=== PATIENT | male | born 1965 | race Two or more races ===

== ENCOUNTER → 2017-06-15 | Outpatient (CLI) | payer OTHER | END | disposition home or self-care (01) | LOC: HKI 09:54 | DX: Z47.1 Aftercare following joint replacement surgery (principal); Z96.651 Presence of right artificial knee joint ==

== ENCOUNTER → 2017-07-14 | Outpatient (CLI) | payer OTHER | END | disposition home or self-care (01) | LOC: HKI 13:52 | DX: Z09 Encounter for follow-up examination after completed treatment for conditions other than malignant neoplasm (principal); Z96.651 Presence of right artificial knee joint; M17.12 Unilateral primary osteoarthritis, left knee | CPT/HCPCS: 73562; 73562-RT ==

== ENCOUNTER → 2017-07-20 | Outpatient (CLI) | payer OTHER | END | disposition home or self-care (01) | LOC: HKI 14:56 | DX: Z47.1 Aftercare following joint replacement surgery (principal); Z96.651 Presence of right artificial knee joint | CPT/HCPCS: 20610 ==

== ENCOUNTER 2018-02-02 12:27 | Emergency (ER) | payer OTHER ==
[2018-02-02] MEDS: SOD CHLORIDE 0.9% 1,000 ML IV (13:53)
[2018-02-02] MEDS: morphine 2 MG INJ IV (13:54)
[2018-02-02] MEDS: ONDANSETRON 4 MG INJ IV (13:54)
[2018-02-02 14:13] LABS: ADD MAN DIFF? NO
[2018-02-02 14:20] LABS: BASOPHILS % 0.4 % (0.0-2.0); EOSINOPHILS # 0.1 10^3/ul (0.0-0.5); EOSINOPHILS % 1.1 % (0.0-7.0); HEMOGLOBIN 16.7 g/dl (14.0-18.0); LYMPHOCYTES % 17.7 % (15.0-51.0); MEAN CORPUSCULAR HEMOGLOBIN 30.3 pg (29.0-33.0); MEAN CORPUSCULAR HGB CONC 33.4 g/dl (32.0-37.0); MEAN CORPUSCULAR VOLUME 90.7 fl (82.0-101.0); MEAN PLATELET VOLUME 9.2 fl (7.4-10.4); MONOCYTES % 8.9 % (0.0-11.0); NEUTROPHIL # 7.9 10^3/ul (1.6-7.5); NEUTROPHILS % 71.7 % (39.0-77.0); PLATELET COUNT 267 10^3/UL (140-415); RED BLOOD COUNT 5.51 10^6/ul (4.70-6.10); RED CELL DISTRIBUTION WIDTH 11.9 % (11.5-14.5)
[2018-02-02 14:20] LABS: WHITE BLOOD COUNT 11.1 10^3/ul (4.8-10.8)
[2018-02-02 14:21] LABS: ADD UMIC NO; UR ASCORBIC ACID NEGATIVE (NEGATIVE); UR BILIRUBIN (Dip) 1+ mg/dL (NEGATIVE); UR BLOOD (Dip) NEGATIVE (NEGATIVE); UR CLARITY CLEAR (CLEAR); UR COLOR AMBER (YELLOW); UR GLUCOSE (Dip) NEGATIVE (NEGATIVE); UR KETONES (Dip) NEGATIVE (NEGATIVE); UR LEUKOCYTE ESTERASE (Dip) NEGATIVE Leu/ul (NEGATIVE); UR NITRITE (Dip) NEGATIVE (NEGATIVE); UR SPECIFIC GRAVITY (Dip) 1.024 (1.003-1.030); UR TOTAL PROTEIN (Dip) NEGATIVE (NEGATIVE); UR UROBILINOGEN (Dip) 2+ mg/dL (NEGATIVE)
[2018-02-02 14:32] LABS: ALANINE AMINOTRANSFERASE 28 IU/L (13-69); ALBUMIN 4.6 g/dl (3.3-4.9); ALBUMIN/GLOBULIN RATIO 1.21; ALKALINE PHOSPHATASE 132 IU/L (42-121); ANION GAP 14 (8-16); ASPARTATE AMINO TRANSFERASE 36 IU/L (15-46); BILIRUBIN,INDIRECT 0.2 mg/dl (0-1.1); BILIRUBIN,TOTAL 0.2 mg/dl (0.2-1.3); BLOOD UREA NITROGEN 16 mg/dl (7-20); CALCIUM 9.5 mg/dl (8.4-10.2); CARBON DIOXIDE 28 mmol/L (21-31); CHLORIDE 105 mmol/L (97-110); CREATININE 1.11 mg/dl (0.61-1.24); GLUCOSE 87 mg/dl (70-220); LIPASE 115 U/L (23-300); POTASSIUM 4.1 mmol/L (3.5-5.1); SODIUM 143 mmol/L (135-144); TOTAL PROTEIN 8.4 g/dl (6.1-8.1)
[2018-02-02] MEDS: ERTAPENEM SODIUM 1 GM in SOD CHLORIDE 0.9% 100 ML IVPB (15:13)
== END 2018-02-02 15:46 | disposition home or self-care (01) ==
LOC: FTE 12:27
DX: K57.32 Diverticulitis of large intestine without perforation or abscess without bleeding (principal); F17.210 Nicotine dependence, cigarettes, uncomplicated
CPT/HCPCS: 36415; 74176; 80053; 81003; 83690; 85025; 96361; 96365; 96375; 99285-25

== ENCOUNTER 2018-02-06 22:45 | Emergency (ER) | payer OTHER ==
[2018-02-06] MEDS: ACETAMINOPHEN 325 MG TAB PO (23:17)
[2018-02-06 23:18] LABS: ADD MAN DIFF? NO
[2018-02-06 23:20] LABS: BASOPHILS % 0.3 % (0.0-2.0); EOSINOPHILS # 0.2 10^3/ul (0.0-0.5); EOSINOPHILS % 1.5 % (0.0-7.0); HEMATOCRIT 47.2 % (42.0-52.0); HEMOGLOBIN 15.8 g/dl (14.0-18.0); LYMPHOCYTES # 1.8 10^3/ul (0.8-2.9); LYMPHOCYTES % 17.7 % (15.0-51.0); MEAN CORPUSCULAR HEMOGLOBIN 30.1 pg (29.0-33.0); MEAN CORPUSCULAR HGB CONC 33.5 g/dl (32.0-37.0); MEAN CORPUSCULAR VOLUME 89.9 fl (82.0-101.0); MEAN PLATELET VOLUME 8.8 fl (7.4-10.4); MONOCYTE # 1.2 10^3/ul (0.3-0.9); MONOCYTES % 12.1 % (0.0-11.0); NEUTROPHILS % 68.2 % (39.0-77.0); PLATELET COUNT 244 10^3/UL (140-415); RED BLOOD COUNT 5.25 10^6/ul (4.70-6.10); RED CELL DISTRIBUTION WIDTH 11.8 % (11.5-14.5)
[2018-02-06 23:20] LABS: WHITE BLOOD COUNT 10.3 10^3/ul (4.8-10.8)
[2018-02-06 23:38] LABS: ALANINE AMINOTRANSFERASE 49 IU/L (13-69); ALBUMIN/GLOBULIN RATIO 1.05; ALKALINE PHOSPHATASE 117 IU/L (42-121); ANION GAP 12 (8-16); ASPARTATE AMINO TRANSFERASE 45 IU/L (15-46); BILIRUBIN,INDIRECT 0.5 mg/dl (0-1.1); BILIRUBIN,TOTAL 0.5 mg/dl (0.2-1.3); BLOOD UREA NITROGEN 25 mg/dl (7-20); CARBON DIOXIDE 29 mmol/L (21-31); CHLORIDE 103 mmol/L (97-110); CREATININE 1.08 mg/dl (0.61-1.24); GLUCOSE 86 mg/dl (70-220); SODIUM 140 mmol/L (135-144); TOTAL PROTEIN 7.8 g/dl (6.1-8.1)
== END 2018-02-07 02:08 | disposition home or self-care (01) ==
LOC: E/R 02-07 02:08
DX: K57.32 Diverticulitis of large intestine without perforation or abscess without bleeding (principal)
CPT/HCPCS: 74176; 80053; 85025; 99284-25

== ENCOUNTER → 2018-06-14 | Outpatient (CLI) | payer MEDICARE, OTHER | END | disposition home or self-care (01) | LOC: HKI 10:08 | DX: M17.12 Unilateral primary osteoarthritis, left knee (principal) | CPT/HCPCS: 73564; 73564-50 ==

== ENCOUNTER 2019-03-02 05:46 | Inpatient (IN) | payer OTHER, MEDICARE ==
[2019-03-02] MEDS: ACETAMINOPHEN 1000MG/100ML IV 100 ML IVPB (06:58)
[2019-03-02] MEDS: oxyCODONE (CR) 10 MG TAB [oxyCONTIN] PO (06:59)
[2019-03-02] MEDS: ONDANSETRON 4 MG INJ IV ×4 (07:00→22:46)
[2019-03-02] MEDS: DEXAMETHASONE 4 MG/ML 1 ML INJ IV (07:00)
[2019-03-02] MEDS: LANSOPRAZOLE 30 MG CAP PO (07:06)
[2019-03-02] MEDS ORDERED: TRANEXAMIC ACID 1GM/100ML(PMX) 200 ML (07:12)
[2019-03-02] MEDS: POLYMYXIN B 500000 UNIT INJ (07:28)
[2019-03-02] MEDS: BACITRACIN 50000 UNITS INJ IRR (07:28)
[2019-03-02] MEDS ORDERED: TRANEXAMIC ACID 1 GM/100 ML (PMX) (08:00)
[2019-03-02] MEDS ORDERED: MIDAZOLAM 1 MG/ML 2 ML INJ (08:01)
[2019-03-02] MEDS ORDERED: morphine SULFATE/PF (10 MG/10 ML) INJ (08:01)
[2019-03-02] MEDS ORDERED: KETOROLAC 30 MG INJ (08:32)
[2019-03-02] MEDS ORDERED: DEXAMETHASONE 4 MG/ML 5 ML INJ (08:32)
[2019-03-02] MEDS ORDERED: ROCURONIUM 50 MG INJ (08:32)
[2019-03-02] MEDS ORDERED: METOCLOPRAMIDE 10 MG INJ (08:32)
[2019-03-02] MEDS ORDERED: ONDANSETRON 4 MG INJ (08:32)
[2019-03-02] MEDS ORDERED: PROPOFOL 20 ML (08:32)
[2019-03-02] MEDS ORDERED: CEFAZOLIN 1 GM INJ (08:32)
[2019-03-02] MEDS ORDERED: ROPIVACAINE 0.2% 20 ML VIAL (08:33)
[2019-03-02] MEDS: CEFAZOLIN 1 GM/NS 50 ML X 1 IVPB (09:00)
[2019-03-02] MEDS ORDERED: ACETAMINOPHEN 500 MG TAB PO ×2 (09:00→11:00)
[2019-03-02] MEDS ORDERED: HETASTARCH 6% NACL 500 ML (09:19)
[2019-03-02] MEDS ORDERED: EPHEDrine 25 MG/5 ML SYG (09:19)
[2019-03-02] MEDS ORDERED: SUGAMMADEX SODIUM 200 MG/2 ML VIAL IV (10:41)
[2019-03-02] MEDS ORDERED: BISACODYL 10 MG SUPP PR (11:00)
[2019-03-02] MEDS ORDERED: HYDROCODONE/APAP (5/325) TAB PO (11:00)
[2019-03-02] MEDS ORDERED: NACL 0.9% 3 ML SYG IV (11:00)
[2019-03-02] MEDS ORDERED: CEFAZOLIN 2 GM/50 ML (PMX) 50 ML IVPB (11:00)
[2019-03-02] MEDS ORDERED: MEPERIDINE 25 MG INJ IV (11:00)
[2019-03-02] MEDS ORDERED: LABETALOL HCL 20MG INJ IV (11:00)
[2019-03-02] MEDS ORDERED: HYDROmorphONE 1 MG/5 ML IV SYRINGE IV ×2 (11:00)
[2019-03-02] MEDS ORDERED: hydrALAzine 20 MG INJ IV (11:00)
[2019-03-02] MEDS ORDERED: NA PHOSPHATE/BIPHOS 133 ML ENEMA PR (11:00)
[2019-03-02] MEDS ORDERED: FENTAnyl 50 MCG/ML VIAL IV ×2 (11:00)
[2019-03-02] MEDS ORDERED: HYDROmorphONE 0.5 MG/0.5 ML SYG IV ×2 (11:00)
[2019-03-02] MEDS ORDERED: NALOXONE (0.4 MG/ML) INJ IV ×2 (11:00)
[2019-03-02] MEDS ORDERED: METOCLOPRAMIDE 10 MG INJ IV (11:00)
[2019-03-02] MEDS ORDERED: NALBUPHINE HCL (10 MG/1 ML) INJ IV (11:00)
[2019-03-02] MEDS ORDERED: morphine 2 MG INJ IV ×2 (11:00)
[2019-03-02] MEDS ORDERED: ONDANSETRON 4 MG INJ IV ×2 (11:00)
[2019-03-02] MEDS ORDERED: EPHEDrine 25 MG/5 ML SYG IV (11:00)
[2019-03-02] MEDS ORDERED: SENNA/DOCUSATE NA (8.6MG/50MG) TAB PO (11:00)
[2019-03-02] MEDS: DOCUSATE SODIUM 100 MG CAP PO (11:00)
[2019-03-02] MEDS ORDERED: KETOROLAC 15 MG INJ IV (11:00)
[2019-03-02] MEDS ORDERED: MAGNESIUM HYDROXIDE 30ML CUP PO (11:00)
[2019-03-02] MEDS ORDERED: OXYCODONE/ACETAMINOPHEN (5/325) TAB PO ×2 (11:00)
[2019-03-02] MEDS ORDERED: DIPHENHYDRAMINE 50 MG INJ IV ×2 (11:00)
[2019-03-02] MEDS: LACTATED RINGER'S 1,000 ML IV (14:20)
[2019-03-02] MEDS: GABAPENTIN 100 MG CAP PO ×2 (14:20→21:09)
[2019-03-02] MEDS ORDERED: ALBUTEROL/IPRATROPIUM (NEB) 3 ML AMP HHN (14:30)
[2019-03-02] MEDS: CEFAZOLIN 2 GM/50 ML (PMX) 50 ML IVPB ×2 (15:04→22:44)
[2019-03-02] MEDS ORDERED: PAIN COCKTAIL VANCO INJ (16:00)
[2019-03-02] MEDS: CHOLECALCIFEROL 1,000 UNIT TAB PO (17:16)
[2019-03-02] MEDS: CYANOCOBALAMIN 100 MCG TAB PO (17:17)
[2019-03-02] MEDS: PYRIDOXINE 50 MG TAB PO (17:17)
[2019-03-02] MEDS: KETOROLAC 30 MG INJ IV (21:09)
[2019-03-03 05:14] LABS: ADD MAN DIFF? NO
[2019-03-03 05:20] LABS: ABNORMAL IP MESSAGE 1; BASOPHILS % 0.1 % (0.0-2.0); HEMATOCRIT 33.4 % (42.0-52.0); HEMOGLOBIN 10.9 g/dl (14.0-18.0); LYMPHOCYTES # 0.8 10^3/ul (0.8-2.9); LYMPHOCYTES % 5.2 % (15.0-51.0); MEAN CORPUSCULAR HEMOGLOBIN 30.3 pg (29.0-33.0); MEAN CORPUSCULAR HGB CONC 32.6 g/dl (32.0-37.0); MEAN CORPUSCULAR VOLUME 92.8 fl (82.0-101.0); MEAN PLATELET VOLUME 9.9 fl (7.4-10.4); MONOCYTE # 1.6 10^3/ul (0.3-0.9); MONOCYTES % 10.2 % (0.0-11.0); NEUTROPHIL # 13.3 10^3/ul (1.6-7.5); PLATELET COUNT 169 10^3/UL (140-415); POSITIVE DIFF @See below; RED CELL DISTRIBUTION WIDTH 12.4 % (11.5-14.5)
[2019-03-03 05:20] LABS: WHITE BLOOD COUNT 15.8 10^3/ul (4.8-10.8)
[2019-03-03 05:44] LABS: MAGNESIUM 1.6 mg/dl (1.7-2.5)
[2019-03-03 05:47] LABS: ANION GAP 4 (5-13); BLOOD UREA NITROGEN 29 mg/dl (7-20); CALCIUM 8.5 mg/dl (8.4-10.2); CARBON DIOXIDE 27 mmol/L (21-31); CHLORIDE 104 mmol/L (97-110); CREATININE 1.16 mg/dl (0.61-1.24); Estimated GFR > 60 mL/min (>60); GLUCOSE 126 mg/dl (70-220); POTASSIUM 4.4 mmol/L (3.5-5.1); SODIUM 135 mmol/L (135-144)
[2019-03-03] MEDS: CEFAZOLIN 2 GM/50 ML (PMX) 50 ML IVPB (06:10)
[2019-03-03] MEDS: ONDANSETRON 4 MG INJ IV (06:11)
[2019-03-03] MEDS: KETOROLAC 30 MG INJ IV (06:11)
[2019-03-03] MEDS: LACTATED RINGER'S 1,000 ML IV (07:30)
[2019-03-03] MEDS: DOCUSATE SODIUM 100 MG CAP PO (08:33)
[2019-03-03] MEDS: CYANOCOBALAMIN 100 MCG TAB PO (08:33)
[2019-03-03] MEDS: CELECOXIB 100 MG CAP PO (08:33)
[2019-03-03] MEDS: PYRIDOXINE 50 MG TAB PO (08:33)
[2019-03-03] MEDS: ASPIRIN (EC) 81 MG TAB PO (08:33)
[2019-03-03] MEDS: CHOLECALCIFEROL 1,000 UNIT TAB PO (08:34)
[2019-03-03] MEDS: GABAPENTIN 100 MG CAP PO ×2 (08:34→12:26)
[2019-03-03] MEDS: oxyCODONE 5 MG TAB PO ×3 (08:34→16:25)
[2019-03-03] MEDS: MAGNESIUM SULFATE 2 GM/50 ML 50 ML IVPB (12:27)
[2019-03-04] MEDS ORDERED: PANTOPRAZOLE (EC) 40 MG TAB PO (06:00)
== END 2019-03-03 20:00 | disposition home health service (06) | DRG 470 ==
LOC: REC 05:46 → MS1 12:57
PROC: 0SRD069 Replacement of Left Knee Joint with Oxidized Zirconium on Polyethylene Synthetic Substitute, Cemented, Open Approach (ICD-10-PCS; principal; 2019-03-02 07:30)
DX: M17.12 Unilateral primary osteoarthritis, left knee (principal); E66.01 Morbid (severe) obesity due to excess calories; Z68.39 Body mass index [BMI] 39.0-39.9, adult; D64.9 Anemia, unspecified; E55.9 Vitamin D deficiency, unspecified; F17.200 Nicotine dependence, unspecified, uncomplicated; Z79.82 Long term (current) use of aspirin
CPT/HCPCS: 73560; 80048; 83735; 85025; 87081; 88304; 88311; 97116; 97162; 97530